=== PATIENT | female | born 1995 | race Caucasian/White ===

== ENCOUNTER 2016-09-17 21:21 | Emergency (ER) | payer OTHER ==
[~2016-09-17] VITALS: Ht 170.2 cm; Wt 71.0 kg
[~2016-09-17 21:21] MED LIST: FLEXERIL5 MG PO; NAPROSYN500 MG PO
[2016-09-18 04:58] VITALS: BP 117/87
== END 2016-09-18 05:00 | disposition home or self-care (01) ==
LOC: EME 21:21
DX: F41.1 Generalized anxiety disorder (principal); F32.9 Major depressive disorder, single episode, unspecified
CPT/HCPCS: 93005; 99281; 99284

== ENCOUNTER 2016-10-03 00:29 | Emergency (ER) | payer OTHER ==
[~2016-10-03] VITALS: Ht 172.7 cm; Wt 74.3 kg
[2016-10-03 01:08] LABS: HEMATOCRIT 38.2 % (36.0-46.0); MCH 30.2 PG (29.0-34.0); MCV 88.8 FL (83-99); MEAN PLAT.VOLUME 9.9 uM^3 (9.5-12.4); PLATELET COUNT 297 K/uL (156-360); RBC DIS.WIDTH-CV 11.8 % (11.8-14.6); RBC DIS.WIDTH-SD 37.9 % (39-53); WHITE BLOOD COUNT 7.2 K/uL (4.1-10.2)
[2016-10-03 01:17] LABS: CHLORIDE 106 mEq/L (99-109); POTASSIUM 3.3 mEq/L (3.7-5.4); SODIUM 139 mEq/L (136-147)
[2016-10-03 01:19] LABS: GLUCOSE 90 mg/dL (70-99)
[2016-10-03 01:20] LABS: ANION GAP 12 MEQ/L (2-14)
[2016-10-03 01:23] LABS: GFR ESTIMATE (CALCULATED) > 59 mL/min/
[2016-10-03 01:24] LABS: UREA NITROGEN (BUN) 14 mg/dL (9-23)
[2016-10-03 01:31] LABS: TROP-I INTERPRETATION NEGATIVE; TROPONIN-I < 0.01 ng/mL (0.0-0.30)
[2016-10-03 02:15] LABS: D-DIMER ELISA 0.36 mg/L FEU (< 0.57)
[2016-10-03] MEDS ORDERED: NAPROXEN250 MG PO (02:30)
[2016-10-03 02:44] VITALS: BP 139/90
== END 2016-10-03 02:44 | disposition home or self-care (01) ==
LOC: EXP 00:29 → EME 00:29 → EXP 02:44
PROVIDERS: Emergency Medicine
DX: R07.89 Other chest pain (principal); F41.9 Anxiety disorder, unspecified; Z88.1 Allergy status to other antibiotic agents
CPT/HCPCS: 71020; 80048; 84484; 85027; 85379; 93005; 99281; 99284